=== PATIENT | male | born 1955 | race Caucasian/White ===

== ENCOUNTER 2019-02-07 07:24 | Outpatient (CLI) | payer OTHER ==
[~2019-02-07 07:24] MED LIST: COUMADIN3 MG; GLIPIZIDE5 MG; GLUCOPHAGE XR500 MG; SYNTHROID300 MCG; TORADOL10 MG
== END 2019-02-07 07:26 | disposition home or self-care (01) ==
LOC: SONOGRAMA 07:24
DX: E04.1 Nontoxic single thyroid nodule (principal)